=== PATIENT | female | born 1935 | race Caucasian/White ===

== ENCOUNTER 2017-09-28 10:04 | Day surgery (SDC) | payer OTHER ==
[~2017-09-28] VITALS: Ht 157.5 cm; Wt 64.0 kg
[~2017-09-28 10:04] MED LIST: ASPI81EC PO; CRANBERRY PO; LEVSOD88 PO; MULVITMINF PO; NAPR220 PO; OMEP20ER PO; SIMV10 PO; SIMV5 PO; SIMVASTATIN PO; VIT C PO; VITAMIN D 3 PO
[2017-09-28] MEDS ORDERED: METO50ER (10:12)
[2017-09-28] MEDS ORDERED: Triamterene W/1 EACH (10:13)
[2017-09-28] MEDS ORDERED: GABA100 (10:25)
== END 2017-09-28 12:14 | disposition home or self-care (01) ==
LOC: ORSCSDS 10:04
PROVIDERS: Orthopaedic Surgery
PROC: 3E0R33Z Introduction of Anti-inflammatory into Spinal Canal, Percutaneous Approach (ICD-10-PCS; principal; 2017-09-28 11:00)
DX: M47.816 Spondylosis without myelopathy or radiculopathy, lumbar region (principal); M48.062 Spinal stenosis, lumbar region with neurogenic claudication; E03.9 Hypothyroidism, unspecified; E78.5 Hyperlipidemia, unspecified; I10 Essential (primary) hypertension; Z79.82 Long term (current) use of aspirin; Z79.899 Other long term (current) drug therapy
CPT/HCPCS: J1040

== ENCOUNTER → 2018-09-24 | Outpatient (CLI) | payer OTHER ==
[~2018-09-24] MED LIST changes: +ASPI81CH PO; -ASPI81EC PO; +GABA100 PO; +Hair, Skin & N1 EACH PO; +METO50ER; -OMEP20ER PO; +OMEPRAZOLE MAGN20 MG PO; +Triamterene W/1 EACH PO
[2018-09-25 12:39] LABS: Adenovirus F 40/41 Not Detected (NOT DETECT); Astrovirus Not Detected (NOT DETECT); Campylobacter Sp Not Detected (NOT DETECT); Cryptosporidium Not Detected (NOT DETECT); Cyclospora Cayetanensis Not Detected (NOT DETECT); E. Coli O157 Not Detected (NOT DETECT); Entamoeba Histolytica Not Detected (NOT DETECT); Enteroaggregative E. coli-EAEC Not Detected (NOT DETECT); Enteropathogenic E. coli-EPEC Not Detected (NOT DETECT); Enterotoxigenic E. coli-ETEC Not Detected (NOT DETECT); Giardia Lamblia Not Detected (NOT DETECT); Norovirus GI/GII Not Detected (NOT DETECT); Plesiomonas Shigelloides Not Detected (NOT DETECT); Rotavirus A Not Detected (NOT DETECT); Salmonella Sp Not Detected (NOT DETECT); Sapovirus Not Detected (NOT DETECT); Shiga Toxin-prod E. coli-STEC Not Detected (NOT DETECT); Shigella/Enteroin E. coli-EIEC Not Detected (NOT DETECT); Vibrio Cholerae Not Detected (NOT DETECT); Vibrio Sp Not Detected (NOT DETECT); Yersinia Enterocolitica Not Detected (NOT DETECT)
== END | disposition home or self-care (01) ==
LOC: LAB SHORT 20:26 → LAB 20:26 → LAB FUT 09-24 13:15
PROVIDERS: Internal Medicine
DX: R19.7 Diarrhea, unspecified (principal)
CPT/HCPCS: 87507

== ENCOUNTER 2018-10-24 09:19 | Day surgery (SDC) | payer OTHER ==
[~2018-10-24] VITALS: Ht 154.9 cm; Wt 59.5 kg
[2018-10-24] MEDS ORDERED: FISH OIL 500 M1 EAC3 PO (10:17)
[2018-10-24] MEDS ORDERED: Simvastatin20 MG PO (10:18)
[2018-10-24] MEDS ORDERED: CHOL10002 PO (10:18)
== END 2018-10-24 11:56 | disposition home or self-care (01) ==
LOC: ORSCSDS 09:19
PROVIDERS: Internal Medicine Gastroenterology
PROC: 0DBK8ZX Excision of Ascending Colon, Via Natural or Artificial Opening Endoscopic, Diagnostic (ICD-10-PCS; principal; 2018-10-24 10:45)
PROC: 0DBP8ZX Excision of Rectum, Via Natural or Artificial Opening Endoscopic, Diagnostic (ICD-10-PCS; principal; 2018-10-24 10:45)
PROC: 0DBE8ZX Excision of Large Intestine, Via Natural or Artificial Opening Endoscopic, Diagnostic (ICD-10-PCS; principal; 2018-10-24 10:45)
DX: R19.7 Diarrhea, unspecified (principal); R63.4 Abnormal weight loss; Z86.010 Personal history of colon polyps; D12.2 Benign neoplasm of ascending colon; D12.8 Benign neoplasm of rectum; K52.831 Collagenous colitis; K57.30 Diverticulosis of large intestine without perforation or abscess without bleeding; K21.9 Gastro-esophageal reflux disease without esophagitis; I10 Essential (primary) hypertension; E03.9 Hypothyroidism, unspecified; Z79.899 Other long term (current) drug therapy
CPT/HCPCS: 88305; 88313; J2704; J7120

== ENCOUNTER 2019-05-09 08:43 | Day surgery (SDC) | payer OTHER ==
[~2019-05-09 08:43] MED LIST changes: +CHOL10002 PO; +FISH OIL 500 M1 EAC3 PO; +Simvastatin20 MG PO
[2019-05-09 14:58] LABS: Performing Lab SYMBIODX; Test Name FNA RT PAROTID
== END 2019-05-09 22:51 | disposition home or self-care (01) ==
LOC: US 08:43
PROVIDERS: Otolaryngology
DX: D49.0 Neoplasm of unspecified behavior of digestive system (principal); I10 Essential (primary) hypertension; K21.9 Gastro-esophageal reflux disease without esophagitis; E03.9 Hypothyroidism, unspecified; E78.5 Hyperlipidemia, unspecified; Z88.8 Allergy status to other drugs, medicaments and biological substances; Z79.82 Long term (current) use of aspirin; Z79.899 Other long term (current) drug therapy
CPT/HCPCS: 76942; 88184; 88185; 88305; 88341; 88342

== ENCOUNTER → 2019-05-17 | Outpatient (CLI) | payer OTHER ==
[2019-05-17 15:32] LABS: Performing Lab SYMBIODX; Test Name FLOW FNA
== END | disposition home or self-care (01) ==
LOC: PLD 15:22 → LAB SHORT 15:22
PROVIDERS: Otolaryngology
DX: C41.1 Malignant neoplasm of mandible (principal); C07 Malignant neoplasm of parotid gland
CPT/HCPCS: 88184; 88185; 88271; 88275; 88305; 88341; 88342; 88360; 88365

== ENCOUNTER 2019-06-21 07:46 | Day surgery (SDC) | payer OTHER ==
[~2019-06-21] VITALS: Ht 154.9 cm; Wt 59.7 kg
--- NOTE | 2019-06-21 12:05 | NUR ---
06/21/19 1205 TOBIN SADLER LATE ENTRY 06/21/2019 AT 1002 MEDIPORT PLACEMENT CONFIRMED WITH PORTABLE XRAY PER DR. LEDESMA
== END 2019-06-21 10:24 | disposition home or self-care (01) ==
LOC: ORSCSDS 07:46
PROVIDERS: Surgery
PROC: B5161ZA Fluoroscopy of Right Subclavian Vein using Low Osmolar Contrast, Guidance (ICD-10-PCS; principal; 2019-06-21 09:00)
PROC: 05H533Z Insertion of Infusion Device into Right Subclavian Vein, Percutaneous Approach (ICD-10-PCS; principal; 2019-06-21 09:00)
DX: C83.31 Diffuse large B-cell lymphoma, lymph nodes of head, face, and neck (principal); C41.1 Malignant neoplasm of mandible; I10 Essential (primary) hypertension; E78.5 Hyperlipidemia, unspecified; E03.9 Hypothyroidism, unspecified; Z79.899 Other long term (current) drug therapy
CPT/HCPCS: 77001; C1788; J0690; J1100; J1642; J2405; J2704; J7120